=== PATIENT | female | born 1955 | race Caucasian/White ===

== ENCOUNTER 2023-11-27 17:02 | Inpatient (IN) | payer MEDICARE, MEDICAID ==
[~2023-11-27] VITALS: Ht 165.1 cm; Wt 59.0 kg
[2023-11-27 17:06] VITALS: BP 147/82; PULSE 90; RESP 20; TEMP 101.2; O2SAT 97
[2023-11-27] MEDS ORDERED: ACETAMINOPHEN EXTRA STRENGTH 500 MG TAB PO ONE (17:30)
[2023-11-27] MEDS ORDERED: NACL 0.9% 1,000 ML IV SCH (17:30)
[2023-11-27 18:00] VITALS: O2SAT 97
[2023-11-27 18:13] LABS: BASOPHILS % (AUTO) 0.3 % (0.0-2.0); EOSINOPHILS # (AUTO) 0.1 K/uL (0-0.4); EOSINOPHILS % (AUTO) 0.7 % (0.0-4.0); HEMATOCRIT 36.5 % (36-48); HEMOGLOBIN 11.9 g/dL (12.0-16.0); LYMPHOCYTES % (AUTO) 7.1 % (20.5-51.1); MEAN CORPUSCULAR HEMOGLOBIN 25 pg (27-31); MEAN CORPUSCULAR HGB CONC 33 g/dL (33-37); MONOCYTES # (AUTO) 0.7 K/uL (0.8-1.0); MONOCYTES % (AUTO) 4.8 % (1.7-9.3); NEUTROPHILS % (AUTO) 87.1 % (42.2-75.2); PLATELET COUNT (AUTO) 323 K/uL (140-450); RED BLOOD CELL COUNT(AUTO) 4.86 MIL/uL (4.20-5.40); RED CELL DISTRIBUTION WIDTH 15.6 % (11.6-13.7); WHITE BLOOD COUNT (AUTO) 13.7 K/uL (4.8-10.8)
[2023-11-27 18:29] LABS: ANION GAP 15.5 (8-16); CALCIUM 9.1 mg/dL (8.5-10.1); CARBON DIOXIDE 27.3 mmol/L (21-32); CREATININE 0.9 mg/dL (0.6-1.3); POTASSIUM 3.8 mmol/L (3.5-5.1)
[2023-11-27] MEDS ORDERED: NACL 0.9% 1,000 ML IV ONE (18:30)
[2023-11-27 18:32] LABS: INR 1.02 (0.8-1.2); PARTIAL THROMBOPLASTIN TIME 33.8 secs (22-35.6); PROTHROMBIN TIME 10.7 secs (10.8-13.4)
[2023-11-27] MEDS ORDERED: ACETAMINOPHEN EXTRA STRENGTH 500 MG TAB ONE (18:37)
[2023-11-27] MEDS ORDERED: INSULIN REGULAR, HUMAN 100 UNIT/ML VIAL SUBQ ONE (18:40)
[2023-11-27 18:42] LABS: ALBUMIN 3.4 g/dL (3.4-5.0); BILIRUBIN,DIRECT 0.1 mg/dL (0.0-0.3); TOTAL BILIRUBIN 0.3 mg/dL (0.0-1.0); TOTAL PROTEIN, SERUM 8.7 g/dL (6.4-8.2)
[2023-11-27 18:59] LABS: LACTIC ACID 1.9 mmol/L (0.4-2.0)
[2023-11-27] MEDS ORDERED: cefTRIAXone 1,000 MG VIAL ONE (19:49)
[2023-11-27 19:54] LABS: APPEARANCE,URINE SL CLOUDY (CLEAR); BILIRUBIN,URINE NEGATIVE (NEGATIVE); BLOOD, URINE TRACE-I (NEGATIVE); COLOR,URINE YELLOW (YELLOW); LEUKOCYTE ESTERASE ,URINE 2+ (NEGATIVE); NITRITE, URINE POSITIVE (NEGATIVE); PH,URINE 7.5 (5.0-9.0); PROTEIN,URINE NEGATIVE (NEGATIVE); UGLUCOSE 2+ (NEGATIVE); UROBILINOGEN,URINE 0.2 EU/dL (0.2 - 1)
[2023-11-27 19:58] LABS: BACTERIA,URINE 2+ /HPF (None Seen); MUCUS,URINE None Seen /LPF (None Seen); RBC,URINE 0-5 /HPF (0-5); SQUAMOUS EPITHELIAL CELL,UR 4-10 (MOD) /LPF (0-3 (FEW))
[2023-11-27 20:07] LABS: FLU A ANTIGEN negative (NEGATIVE); FLU B ANTIGEN NEGATIVE (NEGATIVE)
[2023-11-27 20:17] VITALS: O2SAT 96
[2023-11-27] MEDS ORDERED: AZITHROMYCIN 250 MG TAB PO ONE (20:25)
[2023-11-27 23:21] VITALS: O2SAT 100
[2023-11-28] VITALS (12 sets, daily range): BP systolic 152–162; BP diastolic 71–76; PULSE 84–103; RESP 18–25; TEMP 97.4–98.4; O2SAT 95–99
[2023-11-28] MEDS ORDERED: MORPHINE SULFATE 2 MG/ML SYR IVP PRN (05:20)
[2023-11-28] MEDS ORDERED: HYDROcodone/APAP 5/325 MG 1 TAB TAB PO PRN (05:20)
[2023-11-28] MEDS: ACETAMINOPHEN 325 MG TAB PO PRN ×2 (06:27→21:09)
[2023-11-28] MEDS ORDERED: DEXTROSE 50% 50 ML SYR IVP PRN ×2 (08:40→10:00)
[2023-11-28] MEDS ORDERED: hydrALAZINE 20 MG/ML VIAL IVP PRN (08:40)
[2023-11-28] MEDS ORDERED: AZITHROMYCIN 500 MG in DEXTROSE 5% 250 ML IV SCH (09:00)
[2023-11-28 09:28] LABS: BASOPHILS # (AUTO) 0.1 K/uL (0.00-0.22); BASOPHILS % (AUTO) 0.6 % (0.0-2.0); EOSINOPHILS # (AUTO) 0.2 K/uL (0-0.4); EOSINOPHILS % (AUTO) 1.8 % (0.0-4.0); HEMATOCRIT 33.8 % (36-48); LYMPHOCYTES # (AUTO) 1.5 K/uL (2.5-16.5); LYMPHOCYTES % (AUTO) 13.9 % (20.5-51.1); MEAN CORPUSCULAR HEMOGLOBIN 25 pg (27-31); MEAN CORPUSCULAR HGB CONC 33 g/dL (33-37); MEAN CORPUSCULAR VOLUME 75.9 fL (80-94); MONOCYTES # (AUTO) 0.8 K/uL (0.8-1.0); MONOCYTES % (AUTO) 7.5 % (1.7-9.3); NEUTROPHILS # (AUTO) 8.4 K/uL (1.8-7.7); NEUTROPHILS % (AUTO) 76.2 % (42.2-75.2); PLATELET COUNT (AUTO) 279 K/uL (140-450); RED BLOOD CELL COUNT(AUTO) 4.46 MIL/uL (4.20-5.40); RED CELL DISTRIBUTION WIDTH 15.7 % (11.6-13.7)
[2023-11-28 09:53] LABS: ALBUMIN 2.9 g/dL (3.4-5.0); ANION GAP 14.2 (8-16); CALCIUM 8.5 mg/dL (8.5-10.1); CARBON DIOXIDE 24.4 mmol/L (21-32); CHOL/HDL RATIO 3.8 (1-4.5); CREATININE 0.9 mg/dL (0.6-1.3); POTASSIUM 3.6 mmol/L (3.5-5.1); TOTAL BILIRUBIN 0.2 mg/dL (0.0-1.0); TOTAL PROTEIN, SERUM 7.1 g/dL (6.4-8.2)
[2023-11-28] MEDS ORDERED: INSULIN LISPRO SLIDING SCALE 100 UNITS/ML VIAL SUBQ PRN (10:00)
[2023-11-28] MEDS: BENZONATATE 100 MG CAPLF PO PRN ×2 (10:26→21:10)
[2023-11-28] MEDS: INSULIN LISPRO SLIDING SCALE 100 UNITS/ML VIAL SUBQ PRN ×3 (11:17→21:17)
[2023-11-28] MEDS: BLOOD GLUCOSE MONITORING 1 DEV DEV FS SCH ×3 (11:17→21:10)
[2023-11-28] MEDS ORDERED: BLOOD GLUCOSE MONITORING 1 DEV DEV FS SCH (11:30)
== END 2023-11-28 23:30 | disposition short-term general hospital (02) | DRG 871 ==
LOC: MED 17:02 → MTU 11-28 00:50
PROVIDERS: ADMIT Family Medicine; ATTEND Family Medicine
DX: A41.9 Sepsis, unspecified organism (principal); J69.0 Pneumonitis due to inhalation of food and vomit; N39.0 Urinary tract infection, site not specified; Z20.822 Contact with and (suspected) exposure to COVID-19; J42 Unspecified chronic bronchitis; E11.9 Type 2 diabetes mellitus without complications; I10 Essential (primary) hypertension; E78.5 Hyperlipidemia, unspecified; Z88.8 Allergy status to other drugs, medicaments and biological substances; F79 Unspecified intellectual disabilities
CPT/HCPCS: 36415; 71045; 80048; 80053; 80076; 81001; 82550; 82948; 83036; 83605; 83690; 85025; 85610; 85730; 87040; 87081; 87086; 92526; 93005; 96361; 96365; 96372; 97112; 97530; 99291; J0360; J0696; J1815; J7060